=== PATIENT | male | born 1970 | race Caucasian/White ===

== ENCOUNTER → 2016-04-23 | Outpatient (CLI) | payer OTHER ==
--- NOTE | 2016-04-23 19:15 | DX ---
Fluoroscopy, Less Than One Hour INDICATION: Hip injection. FINDINGS: A single fluoroscopic image is provided, showing a needle pointing at the femoral head. Total fluoroscopic time is 0.1 minutes.
== END ==
LOC: BMCIMAGING 09:28
PROVIDERS: ATTEND Orthopaedic Surgery
PROC: 3E0U33Z Introduction of Anti-inflammatory into Joints, Percutaneous Approach (ICD-10-PCS; principal; 2016-04-23)
DX: M16.11 Unilateral primary osteoarthritis, right hip (principal)

== ENCOUNTER → 2017-02-04 | Outpatient (CLI) | payer OTHER | LOC: BMCIMAGING 12:41 | PROVIDERS: ATTEND Internal Medicine | DX: R10.32 Left lower quadrant pain (principal) ==

== ENCOUNTER → 2017-09-15 | Outpatient (CLI) | payer OTHER | LOC: BMCIMAGING 09:58 | PROVIDERS: ATTEND Orthopaedic Surgery | DX: M25.551 Pain in right hip (principal) ==